=== PATIENT | male | born 1945 | race Caucasian/White ===

== ENCOUNTER → 2020-03-01 13:30 | Outpatient (BNVA) | payer MEDICARE, OTHER, SELFPAY | PROVIDERS: PCP Student in an Organized Health Care Education/Training Program; Referring Provider Student in an Organized Health Care Education/Training Program; Visit Provider Nurse Practitioner Adult Health | DX: G56.02 Carpal tunnel syndrome, left upper limb (principal); I10 Essential (primary) hypertension | CPT/HCPCS: 95908; 99203 ==

== ENCOUNTER 2023-01-12 17:37 | Outpatient (REF) | payer MEDICARE, SELFPAY ==
--- NOTE | 2023-01-12 09:00 | SKI_PTH ---
PATIENT: Keshav Castillo LOC: [facility] U#:[id number] AGE/SX: 77/M ROOM: RE01/12/[address]: Everette English DO : 1945 BED: DIS: 01/12/2023 SPEC #: [id number] RECD: 01/12/23 18:44 STATUS: NATANAEL REQ #: [id number] BO: 01/12/23 09:[address]: Everette English DEPT: Surgical Specimen RECD BY: Chiara Jean ENTERED: 01/12/23 18:45 SP TYPE: SKI OTHR DR: Everette Hall Peter Tissues: 1 - SKIN BIOPSY(SHAVE/PUNCH) 2 - SKIN BIOPSY(SHAVE/PUNCH) Procedures: SKIN LEVEL 4 Comments: [id number]
== END 2023-01-12 17:38 | disposition home or self-care (01) ==
LOC: LBN 17:37
PROVIDERS: PCP Student in an Organized Health Care Education/Training Program; Visit Provider Otolaryngology Otolaryngology/Facial Plastic Surgery
DX: L82.1 Other seborrheic keratosis (principal)
CPT/HCPCS: 88305

== ENCOUNTER → 2023-06-20 13:27 | Outpatient (BNVA) | payer MEDICARE, SELFPAY | PROVIDERS: PCP Family Medicine; Referring Provider Family Medicine; Visit Provider Physician Assistant Surgical | DX: R06.02 Shortness of breath (principal); G47.30 Sleep apnea, unspecified; I50.9 Heart failure, unspecified | CPT/HCPCS: 99205 ==

== ENCOUNTER → 2023-07-26 10:18 | Outpatient (BNVA) | payer MEDICARE, SELFPAY | PROVIDERS: PCP Family Medicine; Referring Provider Family Medicine; Visit Provider Student in an Organized Health Care Education/Training Program | DX: G47.30 Sleep apnea, unspecified (principal); J68.3 Other acute and subacute respiratory conditions due to chemicals, gases, fumes and vapors; J92.9 Pleural plaque without asbestos; I50.9 Heart failure, unspecified | CPT/HCPCS: 99214 ==

== ENCOUNTER → 2023-10-22 08:36 | Outpatient (BNVA) | payer MEDICARE, SELFPAY | PROVIDERS: PCP Family Medicine; Referring Provider Family Medicine; Visit Provider Nurse Practitioner Gerontology | DX: N40.1 Benign prostatic hyperplasia with lower urinary tract symptoms (principal); N13.8 Other obstructive and reflux uropathy; R97.20 Elevated prostate specific antigen [PSA] | CPT/HCPCS: 51798; 81003; 99215 ==

== ENCOUNTER → 2024-01-29 12:26 | Outpatient (BNVA) | payer MEDICARE, SELFPAY | PROVIDERS: PCP Family Medicine; Referring Provider Family Medicine; Visit Provider Physician Assistant Surgical | DX: G47.30 Sleep apnea, unspecified (principal); I50.9 Heart failure, unspecified; J68.3 Other acute and subacute respiratory conditions due to chemicals, gases, fumes and vapors; J92.9 Pleural plaque without asbestos | CPT/HCPCS: 99214 ==

== ENCOUNTER → 2024-04-22 09:26 | Outpatient (BNVA) | payer MEDICARE, SELFPAY | PROVIDERS: PCP Family Medicine; Referring Provider Family Medicine; Visit Provider Nurse Practitioner Gerontology | DX: N40.1 Benign prostatic hyperplasia with lower urinary tract symptoms (principal); N13.8 Other obstructive and reflux uropathy; R35.1 Nocturia; R97.20 Elevated prostate specific antigen [PSA] | CPT/HCPCS: 51798; 81003; 99213 ==

== ENCOUNTER → 2024-07-16 13:16 | Outpatient (BNVA) | payer MEDICARE, SELFPAY | PROVIDERS: PCP Family Medicine; Referring Provider Family Medicine; Visit Provider Nurse Practitioner Gerontology | DX: N40.1 Benign prostatic hyperplasia with lower urinary tract symptoms (principal); N13.8 Other obstructive and reflux uropathy; R97.20 Elevated prostate specific antigen [PSA] | CPT/HCPCS: 99213 ==

== ENCOUNTER → 2024-09-18 12:42 | Outpatient (BNVA) | payer MEDICARE, SELFPAY | PROVIDERS: PCP Family Medicine; Referring Provider Family Medicine; Visit Provider Nurse Practitioner Gerontology | DX: N40.1 Benign prostatic hyperplasia with lower urinary tract symptoms (principal); N13.8 Other obstructive and reflux uropathy; R97.20 Elevated prostate specific antigen [PSA] | CPT/HCPCS: 99215 ==

== ENCOUNTER → 2024-09-29 08:39 | Outpatient (BNVA) | payer MEDICARE, SELFPAY | PROVIDERS: PCP Family Medicine; Referring Provider Family Medicine; Visit Provider Urology | DX: R97.20 Elevated prostate specific antigen [PSA] (principal); R39.9 Unspecified symptoms and signs involving the genitourinary system; C61 Malignant neoplasm of prostate | CPT/HCPCS: 55700; 76872 ==

== ENCOUNTER 2024-09-29 09:15 | Outpatient (REF) | payer MEDICARE, SELFPAY ==
--- NOTE | 2024-09-29 09:30 | PROST_PTH ---
PATIENT: Keshav Castillo LOC: [facility] U#:[id number] AGE/SX: 79/M ROOM: RE09/29/[address]: Misha Soriano MD : 1945 BED: DIS: 09/29/2024 SPEC #: [id number] RECD: 09/29/24 12:20 STATUS: NATANAEL REQ #: [id number] BO: 09/29/24 09:[address]: Misha Soriano DEPT: Surgical Specimen RECD BY: Chiara Jean ENTERED: 09/29/24 12:25 SP TYPE: PROST OTHR DR: Everette Hall Tissues: 1 - PROSTATE NEEDLE BIOPSY 2 - PROSTATE NEEDLE BIOPSY 3 - PROSTATE NEEDLE BIOPSY 4 - PROSTATE NEEDLE BIOPSY 5 - PROSTATE NEEDLE BIOPSY 6 - PROSTATE NEEDLE BIOPSY 7 - PROSTATE NEEDLE BIOPSY 8 - PROSTATE NEEDLE BIOPSY 9 - PROSTATE NEEDLE BIOPSY 10 - PROSTATE NEEDLE BIOPSY 11 - PROSTATE NEEDLE BIOPSY 12 - PROSTATE NEEDLE BIOPSY Procedures: GROSS AND MICRO LEVEL 4 Comments: [id number]
== END 2024-09-29 09:16 | disposition home or self-care (01) ==
LOC: LBN 09:15
PROVIDERS: PCP Family Medicine; Visit Provider Urology
DX: R97.20 Elevated prostate specific antigen [PSA] (principal)
CPT/HCPCS: 88305

== ENCOUNTER → 2024-10-15 14:13 | Outpatient (BNVA) | payer MEDICARE, SELFPAY | PROVIDERS: PCP Family Medicine; Referring Provider Family Medicine; Visit Provider Nurse Practitioner Gerontology | DX: C61 Malignant neoplasm of prostate (principal); R97.20 Elevated prostate specific antigen [PSA]; N40.1 Benign prostatic hyperplasia with lower urinary tract symptoms; N13.8 Other obstructive and reflux uropathy | CPT/HCPCS: 99215 ==

== ENCOUNTER → 2024-11-25 08:19 | Outpatient (BNVA) | payer MEDICARE, SELFPAY | PROVIDERS: PCP Family Medicine; Referring Provider Family Medicine; Visit Provider Nurse Practitioner Gerontology | DX: C61 Malignant neoplasm of prostate (principal) | CPT/HCPCS: 99213 ==